=== PATIENT | male | born 1965 | race Caucasian/White ===

== ENCOUNTER → 2016-12-16 | Outpatient (CLI) | payer MEDICARE ==
[2016-12-16 08:26] LABS: MEAN CORPUSCULAR HGB CONC 33.8 g/dL (31.0-37.0); MEAN PLATELET VOLUME 9.9 FL (6.0-9.5); PLATELET COUNT 267 10^3uL (150-450); WHITE BLOOD COUNT 5.23 10^3uL (4.0-11.0)
[2016-12-16 08:52] LABS: MEAN CORPUSCULAR HEMOGLOBIN 26.3 PG (26.0-34.0); MEAN CORPUSCULAR VOLUME 78 FL (80-100)
[2016-12-16 09:05] LABS: BAND NEUTROPHILS % 0 % (0-6); EOSINOPHILS % 1 % (0-4); LYMPHOCYTES # 1.4 #; MONOCYTES # 0.5 #; MONOCYTES % 9 % (3-11); RBC MORPH NORMAL (NORMAL); SEGMENTED NEUTROPHILS % 64 % (51-67); TOTAL CELLS COUNTED 100
[2016-12-16 09:06] LABS: ERYTHROCYTE SEDIMENTATION RT* 17 mm/hr (0-12)
[2016-12-16 09:08] LABS: ALBUMIN 4.6 g/dL (3.4-5.0); ALKALINE PHOSPHATASE 68 U/L (38-126); BUN/CREATININE RATIO 17 (10-20); CALCULATED IONIZED CALCIUM 3.9 mg/dL (3.8-4.6)
== END ==
LOC: LAB 08:12
PROVIDERS: ATTEND Student in an Organized Health Care Education/Training Program
DX: Z79.899 Other long term (current) drug therapy (principal); M06.89 Other specified rheumatoid arthritis, multiple sites; E78.5 Hyperlipidemia, unspecified
CPT/HCPCS: 36415; 80053; 80061; 85007; 85027; 85652

== ENCOUNTER → 2016-12-17 | Outpatient (CLI) | payer MEDICARE ==
[2016-12-17 08:25] LABS: BILIRUBIN,URINE Negative (Negative); CLARITY,URINE Clear; COLOR,URINE Yellow; GLUCOSE, URINE (UA) Negative (Negative); LEUKOCYTE ESTERASE, URINE Negative (Negative); PH,URINE 6.5 (5.0 - 8.0); UROBILINOGEN,URINE 0.2 mg/dL (0.2-1.0)
== END ==
LOC: LAB 07:59
PROVIDERS: ATTEND Family Medicine
DX: E78.5 Hyperlipidemia, unspecified (principal)
CPT/HCPCS: 81003